=== PATIENT | female | born 1985 | race Two or more races ===

== ENCOUNTER 2016-05-28 09:52 | Emergency (ER) | payer OTHER ==
[~2016-05-28] VITALS: Ht 167.6 cm; Wt 70.7 kg
[2016-05-28] MEDS ORDERED: MINASTRIN 24 F1 EACH PO (10:50)
[2016-05-28] MEDS ORDERED: SYNTHROID125 MCG PO (10:50)
[2016-05-28] MEDS ORDERED: MOTRIN800 MG PO (11:04)
[2016-05-28] MEDS ORDERED: PERCOCET 5/31 TABLET PO (11:04)
[2016-05-28 11:48] VITALS: BP 123/87
== END 2016-05-28 11:49 | disposition home or self-care (01) ==
LOC: EME 09:52
PROC: 3E0234Z Introduction of Serum, Toxoid and Vaccine into Muscle, Percutaneous Approach (ICD-10-PCS; principal; 2016-05-28)
DX: T24.212A Burn of second degree of left thigh, initial encounter (principal); X11.8XXA Contact with other hot tap-water, initial encounter; Z23 Encounter for immunization
CPT/HCPCS: 99281; 99284

== ENCOUNTER 2017-12-19 15:38 | Emergency (ER) | payer OTHER ==
[~2017-12-19] VITALS: Ht 167.6 cm; Wt 75.4 kg
[~2017-12-19 15:38] MED LIST: MINASTRIN 24 F1 EACH PO; MOTRIN800 MG PO; PERCOCET 5/31 TABLET PO; SYNTHROID125 MCG PO
[2017-12-19 16:28] LABS: HEMATOCRIT 38.2 % (36.0-46.0); MCH 29.7 PG (29.0-34.0); MCV 87.2 FL (83-99); PLATELET COUNT 360 K/uL (156-360); RBC DIS.WIDTH-CV 12.7 % (11.8-14.6); RBC DIS.WIDTH-SD 40.5 % (39-53); RED BLOOD COUNT 4.38 M/uL (3.80-5.20); WHITE BLOOD COUNT 7.6 K/uL (4.1-10.2)
[2017-12-19 16:41] LABS: CHLORIDE 103 mEq/L (99-109); GLUCOSE 109 mg/dL (70-99); SODIUM 139 mEq/L (136-147)
[2017-12-19 16:43] LABS: CREATININE 0.8 mg/dL (0.6-1.3); GFR ESTIMATE (CALCULATED) > 59 mL/min/
[2017-12-19 16:44] LABS: UREA NITROGEN (BUN) 8 mg/dL (9-23)
[2017-12-19 17:10] LABS: QUANTITATIVE HCG 1279.9 MIU/ML
[2017-12-19 18:49] LABS: APPEARANCE CLEAR ((CLEAR)); BILIRUBIN NEGATIVE; BLOOD LARGE; COLOR STRAW ((YELLOW)); GLUCOSE (STRIP) NEGATIVE; KETONES NEGATIVE; LEUKOCYTES NEGATIVE; NITRITE NEGATIVE; PROTEIN (STRIP) NEGATIVE; SPECIFIC GRAVITY 1.013 (1.000-1.030); UROBILINOGEN 0.2 MG/DL (0.2-1.0)
[2017-12-19 19:08] LABS: BACTERIA NONE SEEN /HPF; EPITHELIAL CELLS RARE /HPF; MUCUS NONE SEEN /LPF; RED BLOOD CELLS TNTC /HPF (0-5); UCUL ADDED? YES
[2017-12-19 19:10] VITALS: BP 133/93
== END 2017-12-19 19:11 | disposition home or self-care (01) ==
LOC: EME 15:38
PROVIDERS: Physician Assistant
DX: O20.0 Threatened abortion (principal); Z3A.01 Less than 8 weeks gestation of pregnancy
CPT/HCPCS: 76801; 80048; 81003; 84702; 85027; 86850; 86900; 86901; 87086; 99281; 99284

== ENCOUNTER 2017-12-21 15:44 | Emergency (ER) | payer OTHER ==
[~2017-12-21] VITALS: Ht 167.6 cm; Wt 75.5 kg
[2017-12-21 16:17] LABS: HEMATOCRIT 34.7 % (36.0-46.0); HEMOGLOBIN 11.9 G/DL (11.9-15.5); MCHC 34.3 G/DL (30.0-36.0); MCV 87.4 FL (83-99); PLATELET COUNT 342 K/uL (156-360); RBC DIS.WIDTH-CV 12.7 % (11.8-14.6); RBC DIS.WIDTH-SD 40.7 % (39-53); RED BLOOD COUNT 3.97 M/uL (3.80-5.20); WHITE BLOOD COUNT 6.8 K/uL (4.1-10.2)
[2017-12-21 16:30] LABS: CHLORIDE 106 mEq/L (99-109); POTASSIUM 4.1 mEq/L (3.7-5.4); SODIUM 139 mEq/L (136-147)
[2017-12-21 16:32] LABS: GLUCOSE 97 mg/dL (70-99)
[2017-12-21 16:36] LABS: CREATININE 0.8 mg/dL (0.6-1.3); GFR ESTIMATE (CALCULATED) > 59 mL/min/
[2017-12-21 16:37] LABS: UREA NITROGEN (BUN) 12 mg/dL (9-23)
[2017-12-21 16:45] LABS: QUANTITATIVE HCG 1207.5 MIU/ML
[2017-12-21 17:00] LABS: APPEARANCE CLEAR ((CLEAR)); BILIRUBIN NEGATIVE; BLOOD LARGE; COLOR YELLOW ((YELLOW)); GLUCOSE (STRIP) NEGATIVE; KETONES 5; LEUKOCYTES NEGATIVE; NITRITE NEGATIVE; PROTEIN (STRIP) 30; SPECIFIC GRAVITY 1.024 (1.000-1.030); UROBILINOGEN 0.2 MG/DL (0.2-1.0)
[2017-12-21 17:20] LABS: BACTERIA 2+ /HPF; EPITHELIAL CELLS 1+ /HPF; MUCUS 2+ /LPF; RED BLOOD CELLS TNTC /HPF (0-5); UCUL ADDED? YES; WHITE BLOOD CELLS NONE SEEN /HPF (0-5)
[2017-12-21 19:47] VITALS: BP 123/92
== END 2017-12-21 19:57 | disposition home or self-care (01) ==
LOC: EME 15:44
DX: O03.9 Complete or unspecified spontaneous abortion without complication (principal)
CPT/HCPCS: 76801; 80048; 81003; 84702; 85027; 87086; 99281; 99284

== ENCOUNTER 2017-12-29 18:48 | Emergency (ER) | payer OTHER ==
[~2017-12-29] VITALS: Ht 167.6 cm; Wt 74.9 kg
[2017-12-29 20:02] LABS: HEMATOCRIT 33.5 % (36.0-46.0); HEMOGLOBIN 11.4 G/DL (11.9-15.5); MCH 29.9 PG (29.0-34.0); MCV 87.9 FL (83-99); PLATELET COUNT 350 K/uL (156-360); RBC DIS.WIDTH-CV 12.7 % (11.8-14.6); RBC DIS.WIDTH-SD 40.5 % (39-53); RED BLOOD COUNT 3.81 M/uL (3.80-5.20); WHITE BLOOD COUNT 7.6 K/uL (4.1-10.2)
[2017-12-29 20:13] LABS: ALBUMIN 4.4 g/dL (3.2-4.8)
[2017-12-29 20:14] LABS: CHLORIDE 105 mEq/L (99-109); POTASSIUM 3.8 mEq/L (3.7-5.4); SODIUM 141 mEq/L (136-147)
[2017-12-29 20:16] LABS: GLUCOSE 98 mg/dL (70-99); TOTAL PROTEIN 7.6 g/dL (6.4-8.3)
[2017-12-29 20:18] LABS: TOTAL BILIRUBIN 0.2 mg/dL (0.0-1.0)
[2017-12-29 20:19] LABS: ALKALINE PHOSPHATASE 56 IU/L (3-129)
[2017-12-29 20:20] LABS: CREATININE 0.8 mg/dL (0.6-1.3); GFR ESTIMATE (CALCULATED) > 59 mL/min/
[2017-12-29 20:21] LABS: AST (GOT) 17 IU/L (2-34); UREA NITROGEN (BUN) 16 mg/dL (9-23)
[2017-12-29 20:23] LABS: ALT (GPT) 34 IU/L (3-49)
[2017-12-29 20:28] LABS: QUANTITATIVE HCG 614.3 MIU/ML
[2017-12-29 21:09] LABS: APPEARANCE SL.HAZY ((CLEAR)); BILIRUBIN NEGATIVE; BLOOD SMALL; COLOR YELLOW ((YELLOW)); GLUCOSE (STRIP) NEGATIVE; KETONES 5; LEUKOCYTES TRACE; NITRITE NEGATIVE; PROTEIN (STRIP) NEGATIVE; SPECIFIC GRAVITY 1.028 (1.000-1.030)
[2017-12-29 21:22] LABS: BACTERIA RARE /HPF; EPITHELIAL CELLS 1+ /HPF; MUCUS 4+ /LPF; UCUL ADDED? NO; WHITE BLOOD CELLS 0-5 /HPF (0-5)
[2017-12-29 22:31] VITALS: BP 118/86
== END 2017-12-29 22:31 | disposition home or self-care (01) ==
LOC: EME 18:48
PROVIDERS: Physician Assistant
DX: O03.9 Complete or unspecified spontaneous abortion without complication (principal); N83.202 Unspecified ovarian cyst, left side
CPT/HCPCS: 76801; 80053; 81003; 84702; 85027; 99281; 99283